=== PATIENT | male | born 1960 | race Caucasian/White ===

== ENCOUNTER 2024-05-06 02:42 | Emergency (ER) | payer OTHER, SELFPAY ==
[2024-05-06 02:43] VITALS: BP 157/111; PULSE 82; RESP 16; TEMP 36.5; O2SAT 92; BMI 53.5
--- NOTE | 2024-05-06 02:56 | RAD_ITS ---
INDICATION: rib pain EXAMINATION/TECHNIQUE: X-RAY - XR Ribs Unilateral W/ PA Chest Min 3 Views: 5 image COMPARISON: None. FINDINGS: SOFT TISSUES: No soft tissue swelling or gas. BONES: No acute fracture. Left lateral chest wall chronic deformity. No sclerotic or destructive changes observed. VISUALIZED LUNGS: Clear. No pneumothorax. RAD/Ribs Uni Min 3V w/PA Chest IMPRESSION: No evidence of acute injury. CT could further evaluate as clinically indicated. Chronic left lateral chest wall deformity. Electronically Signed: Derrell Vazquez MD at 3:42 EDT ,
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
[2024-05-06 03:57] VITALS: BP 154/94; PULSE 83; RESP 16; TEMP 36.6; O2SAT 92
== END 2024-05-06 04:00 | disposition home or self-care (01) ==
PROVIDERS: Emergency Provider Emergency Medicine; PCP Nurse Practitioner Family; Visit Provider Emergency Medicine
DX: S20.211A Contusion of right front wall of thorax, initial encounter (principal); I10 Essential (primary) hypertension; F17.210 Nicotine dependence, cigarettes, uncomplicated; X58.XXXA Exposure to other specified factors, initial encounter
CPT/HCPCS: 71101; 99282